=== PATIENT | female | born 1965 | race Caucasian/White ===

== ENCOUNTER → 2023-02-21 17:19 | Outpatient (CLI) | payer OTHER, SELFPAY ==
--- NOTE | 2023-02-21 | DI.RAD.S_ITS ---
PROCEDURE: XR KNEE LT 3V INDICATIONS: acute left knee pain TECHNIQUE: 3 views of the knee were acquired. COMPARISON: None. FINDINGS: Bones: No fractures or dislocations. No suspicious bony lesions. Moderate medial compartment joint space narrowing Soft tissues: Moderate joint effusion. No suspicious soft tissue calcifications. IMPRESSION: Moderate joint space narrowing and joint effusion. No fracture. Approved by: Alexis Burr M.D. on 02/22/2023 at 16:36
== END ==
PROVIDERS: PCP Nurse Practitioner Family; Referring Provider Registered Nurse; Visit Provider Registered Nurse
DX: M25.461 Effusion, right knee (principal); M25.562 Pain in left knee
CPT/HCPCS: 73562